=== PATIENT | female | born 1930 | race Caucasian/White ===

== ENCOUNTER 2016-06-04 18:16 | Inpatient (IN) | payer OTHER ==
[~2016-06-04] VITALS: Ht 167.6 cm; Wt 73.0 kg
[2016-06-04 19:09] LABS: BASOPHIL % 0.8 % (0-2); CALCIUM 9.5 mg/dL (8.5-10.1); CARBON DIOXIDE 25.7 mmol/L (21-32); CHLORIDE SERUM 105 mmol/L (98-107); CREATININE SERUM 1.4 mg/dL (0.6-1.0); GLUCOSE SERUM 142 mg/dL (74-106); PLATELET COUNT 180 x10^3mcL (130-400); POTASSIUM SERUM 4.1 mmol/L (3.5-5.1); SODIUM SERUM 140 mmol/L (136-145)
[2016-06-04 19:11] LABS: RED CELL DISTRIBUTION WIDTH 15.4 % (11.5-14.5)
[2016-06-04 19:13] LABS: ALBUMIN 3.9 g/dL (3.4-5.0); ALKALINE PHOSPHATASE 52 U/L (46-116); ALT/SGPT 19 U/L (14-59); AST/SGOT 15 U/L (15-37); BILIRUBIN TOTAL 0.22 mg/dL (0.20-1.00); TOTAL PROTEIN, SERUM 6.9 g/dL (6.4-8.2)
[2016-06-04] MEDS ORDERED: ENALAPRIL MALEA20 MG PO (19:20)
[2016-06-04] MEDS ORDERED: AMLODIPINE BESYL5 M2 PO (19:20)
[2016-06-04] MEDS ORDERED: ADV100/50 INH (19:21)
[2016-06-04] MEDS ORDERED: PROAIR HFA8.5 GM IH (19:21)
[2016-06-04] MEDS ORDERED: AMOXICILLIN875 MG PO (19:22)
[2016-06-04 20:03] LABS: microscopic required? YES; urine erythrocyte TRACE (NEGATIVE)
[2016-06-04 20:33] VITALS: BP 143/79
[2016-06-04 20:36] VITALS: Ht 167.6 cm; Wt 73.0 kg
[2016-06-04 20:52] LABS: CHOLESTEROL/HDL RATIO 3.4
[2016-06-04 20:56] LABS: T3 TOTAL 1.04 ng/mL
[2016-06-04 21:00] LABS: FREE T4 0.97 ng/dL (0.76-1.46); FREE THYROXINE INDEX 2.6 ug/dL (1.4-4.5); T4(THYROXINE) 7.8 ug/dL (4.7-13.3)
[2016-06-05 05:51] VITALS: BP 127/49
[2016-06-05 06:54] LABS: BASOPHIL % 0.8 % (0-2); CALCIUM 9.1 mg/dL (8.5-10.1); CHLORIDE SERUM 110 mmol/L (98-107); CREATININE SERUM 1.2 mg/dL (0.6-1.0); GLUCOSE SERUM 90 mg/dL (74-106); MAGNESIUM 2.1 mg/dL (1.8-2.4); PHOSPHOROUS 3.1 mg/dL (2.5-4.9); PLATELET COUNT 157 x10^3mcL (130-400); POTASSIUM SERUM 4.2 mmol/L (3.5-5.1); SODIUM SERUM 143 mmol/L (136-145)
[2016-06-05 07:22] LABS: RED CELL DISTRIBUTION WIDTH 15.2 % (11.5-14.5)
[2016-06-05 09:30] VITALS: BP 126/51
[2016-06-05 13:25] VITALS: BP 115/46
[2016-06-05 15:10] VITALS: BP 115/46
[2016-06-05 18:15] VITALS: BP 131/53
[2016-06-05 20:23] VITALS: BP 122/60
[2016-06-06 06:12] LABS: CHLORIDE SERUM 111 mmol/L (98-107); CREATININE SERUM 1.1 mg/dL (0.6-1.0); GLUCOSE SERUM 93 mg/dL (74-106); POTASSIUM SERUM 4.1 mmol/L (3.5-5.1); SODIUM SERUM 143 mmol/L (136-145)
[2016-06-06 06:42] VITALS: BP 130/74
[2016-06-06 06:44] LABS: BASOPHIL % 0.8 % (0-2); PLATELET COUNT 141 x10^3mcL (130-400)
[2016-06-06 06:48] LABS: RED CELL DISTRIBUTION WIDTH 15.6 % (11.5-14.5)
[2016-06-06] MEDS ORDERED: LEVAQUIN750 MG PO (09:32)
[2016-06-06] MEDS ORDERED: LAC PO (09:33)
[2016-06-06] MEDS ORDERED: ATORVASTATIN CA40 M1 PO (09:33)
[2016-06-06] MEDS ORDERED: ECO81 PO (09:34)
[2016-06-06 10:13] VITALS: BP 130/74
== END 2016-06-06 10:54 | disposition home or self-care (01) | DRG 69 ==
LOC: ED 18:16 → DU 19:22 → MU 06-05 15:34
PROVIDERS: Emergency Medicine; ADMIT Family Medicine
DX: G45.9 Transient cerebral ischemic attack, unspecified (principal); N17.0 Acute kidney failure with tubular necrosis; N39.0 Urinary tract infection, site not specified; E44.0 Moderate protein-calorie malnutrition; D68.69 Other thrombophilia; I12.9 Hypertensive chronic kidney disease with stage 1 through stage 4 chronic kidney disease, or unspecified chronic kidney disease; N18.3 Chronic kidney disease, stage 3 (moderate); J44.9 Chronic obstructive pulmonary disease, unspecified; E87.8 Other disorders of electrolyte and fluid balance, not elsewhere classified; J32.9 Chronic sinusitis, unspecified; R31.9 Hematuria, unspecified; D63.8 Anemia in other chronic diseases classified elsewhere
CPT/HCPCS: 82962; 83880; 84439; 94150; J0696; J2405; J7030; J7620; Q0092; Q0163

== ENCOUNTER 2017-02-28 06:15 | Emergency (ER) | payer OTHER ==
[~2017-02-28] VITALS: Ht 167.6 cm; Wt 68.0 kg
[~2017-02-28 06:15] MED LIST: ADV100/50 INH; AMLODIPINE BESYL5 M2 PO; AMOXICILLIN875 MG PO; ATORVASTATIN CA40 M1 PO; ECO81 PO; ENALAPRIL MALEA20 MG PO; LAC PO; LEVAQUIN750 MG PO; PROAIR HFA8.5 GM IH
[2017-02-28 06:20] VITALS: Ht 167.6 cm; Wt 68.0 kg
[2017-02-28 07:47] LABS: BASOPHIL % 0.6 % (0-2); PLATELET COUNT 170 x10^3mcL (130-400)
[2017-02-28 07:51] LABS: microscopic required? YES; urine erythrocyte NEGATIVE (NEGATIVE)
[2017-02-28 08:14] LABS: CALCIUM 9.3 mg/dL (8.5-10.1); CARBON DIOXIDE 24.5 mmol/L (21-32); CHLORIDE SERUM 108 mmol/L (98-107); GLUCOSE SERUM 105 mg/dL (74-106); POTASSIUM SERUM 3.6 mmol/L (3.5-5.1); SODIUM SERUM 139 mmol/L (136-145)
[2017-02-28 08:17] LABS: ALBUMIN 3.5 g/dL (3.4-5.0); ALKALINE PHOSPHATASE 51 U/L (46-116); ALT/SGPT 39 U/L (14-59); AST/SGOT 15 U/L (15-37); BILIRUBIN TOTAL 0.59 mg/dL (0.20-1.00); LIPASE 68 IU/L (73-393); TOTAL PROTEIN, SERUM 6.4 g/dL (6.4-8.2)
[2017-02-28 08:19] LABS: RED CELL DISTRIBUTION WIDTH 14.7 % (11.5-14.5)
[2017-02-28 11:14] VITALS: BP 124/68
== END 2017-02-28 11:14 | disposition home or self-care (01) ==
LOC: ED 06:15
PROVIDERS: Emergency Medicine
DX: J11.1 Influenza due to unidentified influenza virus with other respiratory manifestations (principal); N18.3 Chronic kidney disease, stage 3 (moderate); J45.909 Unspecified asthma, uncomplicated; Z88.2 Allergy status to sulfonamides; Z88.5 Allergy status to narcotic agent; Z88.8 Allergy status to other drugs, medicaments and biological substances
CPT/HCPCS: 87804; J0696; J1885; J2930; J7030; J7512; J7613; J7644

== ENCOUNTER 2017-09-11 08:45 | Observation (INO) | payer OTHER ==
[~2017-09-11] VITALS: Ht 167.6 cm; Wt 65.1 kg
[2017-09-11 08:50] VITALS: Ht 167.6 cm; Wt 65.1 kg
[2017-09-11 09:53] LABS: BASOPHIL % 1.1 % (0-2); PLATELET COUNT 168 x10^3mcL (130-400)
[2017-09-11 09:58] LABS: RED CELL DISTRIBUTION WIDTH 15.3 % (11.5-14.5)
[2017-09-11 10:04] LABS: CALCIUM 10.2 mg/dL (8.5-10.1); CARBON DIOXIDE 27.1 mmol/L (21-32); CHLORIDE SERUM 106 mmol/L (98-107); CREATININE SERUM 1.3 mg/dL (0.6-1.0); GLUCOSE SERUM 103 mg/dL (74-106); POTASSIUM SERUM 4.4 mmol/L (3.5-5.1); SODIUM SERUM 138 mmol/L (136-145)
[2017-09-11 10:08] LABS: ALBUMIN 3.7 g/dL (3.4-5.0); ALKALINE PHOSPHATASE 53 U/L (46-116); ALT/SGPT 15 U/L (14-59); AST/SGOT 13 U/L (15-37); BILIRUBIN TOTAL 0.34 mg/dL (0.20-1.00); TOTAL PROTEIN, SERUM 6.8 g/dL (6.4-8.2)
[2017-09-11 12:09] VITALS: BP 125/58
[2017-09-11 17:59] VITALS: BP 103/62
[2017-09-11 20:50] VITALS: BP 115/57
[2017-09-12 05:27] VITALS: BP 112/52
[2017-09-12 06:08] LABS: PLATELET COUNT 178 x10^3mcL (130-400)
[2017-09-12 06:24] LABS: CALCIUM 9.8 mg/dL (8.5-10.1); CARBON DIOXIDE 27.4 mmol/L (21-32); CHLORIDE SERUM 106 mmol/L (98-107); CREATININE SERUM 1.3 mg/dL (0.6-1.0); GLUCOSE SERUM 89 mg/dL (74-106); POTASSIUM SERUM 4.1 mmol/L (3.5-5.1); RED CELL DISTRIBUTION WIDTH 15.5 % (11.5-14.5); SODIUM SERUM 138 mmol/L (136-145)
[2017-09-12 10:18] VITALS: BP 114/55
[2017-09-12] MEDS ORDERED: METOPROLOL TART25 M1 PO (11:19)
[2017-09-12 14:08] VITALS: BP 111/41
== END 2017-09-12 16:45 | disposition home or self-care (01) | DRG 310 ==
LOC: ED 08:45 → DU 10:57
PROVIDERS: Emergency Medicine; Internal Medicine Pulmonary Disease
DX: I47.1 Supraventricular tachycardia (principal); I10 Essential (primary) hypertension; E78.5 Hyperlipidemia, unspecified; J44.9 Chronic obstructive pulmonary disease, unspecified; Z72.0 Tobacco use; Z68.24 Body mass index [BMI] 24.0-24.9, adult; Z79.82 Long term (current) use of aspirin
CPT/HCPCS: 83880; G0378; J1644; J3490; Q0092